=== PATIENT | male | born 1935 | race Caucasian/White ===

== ENCOUNTER 2017-06-13 08:15 | Emergency (ER) | payer MEDICARE ==
[~2017-06-13] VITALS: Ht 180.3 cm; Wt 86.2 kg
--- OUTSIDE RECORDS SUMMARY | ~2017-06-13 | XMS | Clinical Summary ---
Demographics + + + | Address | [address] | | | [place] [address] | + + + | Home Phone | | + + + | Preferred Language | Unknown | + + + | Marital Status | Single | + + + | Pentecostal Affiliation | CAT | + + + | Race | White | + + + | Ethnic Group | Not or | + + + Author + + + | Author | [facility] | + + + | Organization | [facility] | + + + | Address | Unknown | + + + | Phone | Unavailable | + + + Support + + +---------+ + | Name | Relationship | Address | Phone | + + +---------+ + | KINJAL KULKARNI | ECON | Unknown | | + + +---------+ + Care Team Providers + +------+ + | Care Hydrate Thickener Operator Name | Role | Phone | + +------+ + | Bruce Handley MD | PP | | + +------+ + Source Comments GISELLE is fully live on both [facility] and [facility] Allergies No Known Allergies Current Medications + + + +---------+------+------+-------+ | Prescription | Sig. | Disp. | Refills | Star | End | Statu | | | | | | t | Date | s | | | | | | Date | | | + + + +---------+------+------+-------+ | COZAAR 50 MG TAB | AM | | | | | Activ | | | | | | | | e | + + + +---------+------+------+-------+ | ALBUTEROL 90 | 2 puffs daily + as | | | | | Activ | | MCG/ACTUATION | needed | | | | | e | | AEROSOL INHALER | | | | | | | + + + +---------+------+------+-------+ | sodium chloride | Inhale 5 mL three | 100 mL | 3 | 04/0 | | Activ | | 0.9 % Inhalation | times daily. | | | 620 | | e | | Solution for | | | | 11 | | | | Nebulization | | | | | | | + + + +---------+------+------+-------+ | omeprazole 20 mg | Take 1 Cap by mouth | 60 Cap | 4 | 08/3 | | Activ | | Oral capsule,delayed | two times daily. | | | 20 | | e | | release(DR/EC) | | | | 12 | | | + + + +---------+------+------+-------+ | | Inhale 1 Puff two | | | | | Activ | | fluticasone-salmeter | times daily. | | | | | e | | ol 100-50 mcg/dose | | | | | | | | Inhalation Disk with | | | | | | | | Device | | | | | | | + + + +---------+------+------+-------+ | cholecalciferol, | Take 2,000 Units by | | | | | Activ | | Vitamin D3, 1,000 | mouth once daily in | | | | | e | | unit Oral tablet | the morning. | | | | | | + + + +---------+------+------+-------+ | multivitamin Oral | Take 1 capsule by | | | | | Activ | | capsule | mouth once daily in | | | | | e | | | the morning. | | | | | | + + + +---------+------+------+-------+ | clopidogrel | Take 1 Tab by mouth | 35 Tab | 0 | 12/0 | | Activ | | (PLAVIX) 75 mg Oral | once daily. | | | 4/20 | | e | | tablet | | | | 12 | | | + + + +---------+------+------+-------+ | aspirin 325 mg | Take 1 Tab by mouth | 30 Tab | 12 | 12/0 | | Activ | | Oral tablet | once daily. | | | 4 | | e | | | | | | 12 | | | + + + +---------+------+------+-------+ | NYSTATIN 100,000 | Take by mouth. Use | 120 mL | 2 | 03/05 | | Activ | | unit/mL oral | on cleaning brush | | | 0 | | e | | suspensionIndication | twice daily as | | | 14 | | | | s: oral candidiasis | directed in clinic | | | | | | | | Indications: ORAL | | | | | | | | CANDIDIASIS | | | | | | + + + +---------+------+------+-------+ | levothyroxine 175 | Take 175 mcg by | | | 03/05 | | Activ | | mcg oral tablet | mouth once daily in | | | 2/20 | | e | | | the morning. | | | 16 | | | + + + +---------+------+------+-------+ | PROAIR HFA 90 | Inhale by mouth | | | 02/0 | | Activ | | mcg/actuation | every six hours as | | | 03/24 | | e | | inhalation HFA | needed. | | | 16 | | | | aerosol inhaler | | | | | | | + + + +---------+------+------+-------+ | temazepam 30 mg | Take 30 mg by mouth | | | 03/05 | | Activ | | oral capsule | once daily at | | | 09/21 | | e | | | bedtime. | | | 16 | | | + + + +---------+------+------+-------+ | OMEGA-3 FATTY | Take by mouth once | | | | | Activ | | ACIDS (FISH OIL | daily in the | | | | | e | | ORAL) | morning. | | | | | | + + + +---------+------+------+-------+ | Flaxseed Oil oil | two times daily. | | | | | Activ | | | | | | | | e | + + + +---------+------+------+-------+ | Garlic 1,000 mg | Take by mouth two | | | | | Activ | | oral capsule | times daily. | | | | | e | + + + +---------+------+------+-------+ | IRON ORAL | Take by mouth once | | | | | Activ | | | daily in the | | | | | e | | | morning. | | | | | | + + + +---------+------+------+-------+ | VIT | Take by mouth two | | | | | Activ | | C/E/ZN/COPPR/LUTEIN/ | times daily. | | | | | e | | ZEAXAN (PRESERVISION | | | | | | | | AREDS 2 ORAL) | | | | | | | + + + +---------+------+------+-------+ | oxyCODONE | Take 1 tablet by | 10 | 0 | 06/2 | | Activ | | (immediate release) | mouth every four | tablet | | 3/20 | | e | | 5 mg oral tablet | hours as needed for | | | 17 | | | | | severe pain. | | | | | | + + + +---------+------+------+-------+ | acetaminophen 325 | Take 2 tablets by | 60 | 0 | 06/2 | | Activ | | mg oral tablet | mouth every four | tablet | | 4/20 | | e | | | hours as needed. 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 | + + + Resolved Problems + + + + | Problem | Noted | Resolved | | | Date | Date | + + + + | Oral candidiasis | 03/17/19 | | | | 14 | 8 | + + + + Encounters +--------+ + + + + | Date | Type | Specialty | Care Team | Description | +--------+ + + + + | 05/08/ | Diagnostic | | Jaret Lyles | | | 2017 | Visit | | | | +--------+ + + + + | 05/08/ | Office | | Bakari Romero, | Malignant neoplasm | | 2018 | Visit | | MD | of glottis (HCC) | | | | | | (Primary Dx) | +--------+ + + + + | 04/25/ | Telephone | | Jaret Lyles | Tep Voice Prosthesis | | 2018 | | | | Problems | +--------+ + + + + from Last 3 Months Family History + +------+--------+ + | Relation | Name | Status | Comments | + +------+--------+ + Social History + + + +--------+ + | Tobacco Use | Types | Packs/Day | Years | Date | | | | | Used | | + + + +--------+ + | Former Smoker | Cigarettes | 2 | 33 | 195103/22/1984 | + + + +--------+ + + +---+---+---+ | Smokeless Tobacco: | | | | | Never Used | | | | + +---+---+---+ + + +---------+ + | Alcohol Use | Drinks/We | oz/Week | Comments | | | ek | | | + + +---------+ + | Yes | 0-1 | 0.0 - | rarely | | | Standard | 0.6 | | | | drinks or | | | | | | | | | | equivalen | | | | | t | | | + + +---------+ + + + + | Sex Assigned at | Date Recorded | | | | + + + | Not on file | | + + + Last Filed Vital Signs + + + + | Vital Sign | Reading | Time Taken | + + + + | Blood Pressure | 115/73 | 05/08/2017 4:37 PM PST | + + + + | Pulse | 94 | 05/08/2017 4:37 PM PST | + + + + | Temperature | 36.6 C (97.9 F) | 08/26/2016 7:37 AM PDT | + + + + | Respiratory Rate | 16 | 08/26/2016 4:41 AM PDT | + + + + | Oxygen Saturation | 94% | 08/26/2016 7:37 AM PDT | + + + + | Inhaled Oxygen | - | - | | Concentration | | | + + + + | Weight | 72.6 kg (160 lb) | 05/08/2017 4:37 PM PST | + + + + | Height | 188 cm (6' 2") | 08/25/2016 10:29 AM PDT | + + + + | Body Mass Index | 20.54 | 05/08/2017 4:37 PM PST | + + + + Plan of Treatment + + + + + | Health Maintenance | Due Date | Last Done | Comments | + + + + + | INFLUENZA VACCINE | | | | | (FLU SHOT) | 8 | | | + + + + + Procedures + +--------+ + + + | Procedure Name | Priori | Date/Time | Associated Diagnosis | Comments | | | ty | | | | + +--------+ + + + | MS EVAL VOICE PROSTH | Routin | 05/08/2017 | Aphonia | | | DEVICE | e | 5:22 PM | Dysphagia, | | | | | PST | pharyngoesophageal | | | | | | phase Attention to | | | | | | tracheostomy (HCC) | | + +--------+ + + + from Last 3 Months Results Not on filefrom Last 3 Months
--- OUTSIDE RECORDS SUMMARY | ~2017-06-13 | XMS | Encounter Summary ---
Demographics + + + | Address | [address] | | | [place] [address] | + + + | Home Phone | | + + + | Preferred Language | Unknown | + + + | Marital Status | Single | + + + | Mormon Affiliation | CAT | + + + | Race | White | + + + | Ethnic Group | Not or | + + + Author + + + | Author | [facility] | + + + | Organization | [facility] | + + + | Address | Unknown | + + + | Phone | Unavailable | + + + Support + + +---------+ + | Name | Relationship | Address | Phone | + + +---------+ + | KINJAL KULKARNI | ECON | Unknown | | + + +---------+ + Care Team Providers + +------+ + | Care Police Detention Attendant Name | Role | Phone | + +------+ + | Bruce Handley MD | PCP | | + +------+ + Reason for Visit Benefits Check (Routine) + +--------+ + + + + | Status | Reason | Specialty | Diagnoses / | Referred By | Referred To | | | | | Procedures | Contact | Contact | + +--------+ + + + + | Authorized | | Otolaryngolog | Diagnoses | [facility] | Romero, | | | | y | Malignant | Epic Dept | MD Bakari | | | | | neoplasm of | | [address] | | | | | glottis | | [address] | | | | | Esophageal | | [address] [place], | | | | | obstruction | | [place] | | | | | Procedures | | [address] | | | | | [place] | | Phone: | | | | | OFFICE/OUTPT | | [phone] | | | | | | | Fax: | | | | | VISIT,EST,LE | | [phone] | | | | | WINDY III | | | + +--------+ + + + + Encounter Details +--------+---------+ + + + | Date | Type | Department | Care Team | Description | +--------+---------+ + + + | 05/08/ | Office | Otolaryngology | Bakari Romero, | Malignant neoplasm | | 2018 | Visit | Head and Neck | [address] | of glottis (HCC) | | | | Surgery Services at | [facility] [address] | (Primary Dx) | | | | [facility] [address] | [place], [place] | | | | | [facility] | [address] | | | | | Mailcode: [address]01 | [phone] | | | | | [facility] | | | | | | [place], [place] | | | | | | [address] | | | | | | [phone] | | | +--------+---------+ + + + Social History + + + +--------+ [...] on file | | + + + as of this encounter Last Filed Vital Signs + + + + | Vital Sign | Reading | Time Taken | + + + + | Blood Pressure | 115/73 | 05/08/2017 4:37 PM PST | + + + + | Pulse | 94 | 05/08/2017 4:37 PM PST | + + + + | Temperature | - | - | + + + + | Respiratory Rate | - | - | + + + + | Oxygen Saturation | - | - | + + + + | Inhaled Oxygen | - | - | | Concentration | | | + + + + | Weight | 72.6 kg (160 lb) | 05/08/2017 4:37 PM PST | + + + + | Height | - | - | + + + + | Body Mass Index | 20.54 | 05/08/2017 4:37 PM PST | + + + + in this encounter Progress Notes Bakari Romero MD - 05/08/2017 4:00 PM PSTOtolaryngology Attending Note Please see Dr. Feliciano's note for the complete details of the history and physical exam. I r eviewed the resident's findings and repeated these components of the physical exam: complete history, review of systems, review of medications and complete examination of the head and neck I participated in the formulation of the diagnosis and treatment plan as outlined in Dr. Nacho nguyen's note. Bakari Romero MD Professor of Otolaryngology, Head & Neck Surgery Display Progress Note in MyChart:No Jen Feliciano MD - 05/08/2017 4:00 PM PSTFormatting of this note may be different from the original. The Department of Otolaryngology Head and Neck Surgery Clinic Follow-Up Visit: Author: Jen Feliciano MD Attending Physician: Bakari Romero MD 05/08/2017, 4:01 PM ID: Pablo Kulkarni is a 81 y.o. Male with PMHx of laryngeal cancer s/p laryngectomy who is here for follow up. Mostly here for TEP change. INTERVAL AND SUBJECTIVE Was having increased difficulty voicing and TEP leak. The voice is actually improved in cl inic today. Recent hospitalization for stroke and possible pneumonia. Pulmonary function d ecreased. Meds: No outpatient prescriptions have been marked as taking for the 05/08/17 encounter (Appointmen t) with Bakari Romero MD. OBJECTIVE: Physical Exam: CURRENT VITALS: Wt 72.6 kg (160 lb), BP 115/73, Pulse 94, BMI 20.54 kg/(m^2). General: awake, answers questions appropriately, very thin HEENT: With TEP he is intelligible Face: Normal facial contour and facial nerve function. No parotid masses palpable on either side. Eyes: Extraocular movements intact, PERRLA. Sclera non-icteric. Nose: Normal, nares clear bilaterally, septum midline Neck: laryngectomy stoma is patent and healthy appearing; original TEP has small leak with water testing, area around TEP is clean, no granulation tissue present, no leak after TEP is replaced ASSESSMENT: This is Pablo Kulkarni, a 81 y.o. 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 TEP replaced in clinic today by speech pathology and resul t is good voice. PLAN: 1. Follow up as needed 2. Continue routine stoma and TEP care 3. Instructions provided to patient and family on using the TEP plug in case he develops an other leak in the future Dr. Romero has seen and examined the patient and agrees with the above plan. Signed: Jen Feliciano MD [facility] - Otolaryngology - Head and Neck Surgery Pager: [phone] Display Progress Note in MyChart:No in this encounter Plan of Treatment Not on fileas of this encounter Visit Diagnoses + + | Diagnosis | + + | 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
--- OUTSIDE RECORDS SUMMARY | ~2017-06-13 | XMS | Encounter Summary ---
Demographics + + + | Address | [address] | | | [place] [address] | + + + | Home Phone | | + + + | Preferred Language | Unknown | + + + | Marital Status | Single | + + + | Adventism Affiliation | CAT | + + + | Race | White | + + + | Ethnic Group | Not or | + + + Author + + + | Author | [facility] | + + + | Organization | [facility] | + + + | Address | Unknown | + + + | Phone | Unavailable | + + + Support + + +---------+ + | Name | Relationship | Address | Phone | + + +---------+ + | KINJAL KULKARNI | ECON | Unknown | | + + +---------+ + Care Team Providers + +------+ + | Care Paradichlorobenzene Tender Name | Role | Phone | + +------+ + | Bruce Handley MD | PCP | | + +------+ + Encounter Details +--------+ + + + + | Date | Type | Department | Care Team | Description | +--------+ + + + + | 05/08/ | Diagnostic | Otolaryngology | Jaret Lyles | | | 2018 | Visit | Speech Therapy | [address] | | | | | Services at [facility] | [facility], | | | | | [address] | [place] [address] | | | | | [facility] | [phone] | | | | | Mailcode: [address]01 | | | | | | [facility] | | | | | | [place], [place] | | | | | | [address] | | | | | | [phone] | | | +--------+ + + + + Social History + + [...] + + + as of this encounter Progress Notes Jaret Lyles - 05/08/2017 4:00 PM PSTFormatting of this note may be different from the o clarissa. Clinic: [facility] Referring Physician: Bruce Handley MD [facility] [address] [place] [id number] PCP: Bruce Handley MD Medical Diagnosis: 1. Dysphagia (ICD-9: 787.29, ICD-10: R13.19) 2. History of head and neck cancer, V10.89 3. Laryngeal cancer (ICD-9: 161.9, ICD-10: C32.9) Date of Onset: 04/27/17 Treatment Diagnosis: 1. Dysphagia, (ICD-9: 787.29, ICD-10: R13.19) 2. Aphonia (ICD-9: 784.41, ICD-10: R49.1) 3. Attention to tracheostomy (ICD-9: V55.0, ICD-10: Z43.0) Start of Care Date: 05/08/2017 Duration of session: 60 minutes SUBJECTIVE: Pablo Kulkarni is a 81 y.o. male patient of Dr. Romero who returns to [facility] with complaints of difficulty voicing, leakage through the TEP, difficulty with TEP manag ement and stoma care. He is a resident at a SNF in [place]. I have been contacted by his S LP there. He is accompanied by his family who have many questions about stoma care and the T EP. TEP PUNCTURE PROTOCOL: The patient currently has a 4.5mm Provox2 voice prosthesis in place which was last changed on 01/09/17.The voice prosthesis was inspected and was noted to be wel l-housed. There was leakage through the voice prosthesis on consumption of thin liquids. The prosthesis was replaced with a 4.5mm Provox2 voice prosthesis (LOT# [id number]) with no diffic ulty after brief dilation and sizing of the tract. Confirmation of placement was achieved vi a 360 degree rotation. Voice quality returned to baseline. There were no leaks through or ar ound the voice prosthesis. The tab was then removed. PATIENT EDUCATION & TREATMENT: During today's visit we also discussed wearing an HME throug hout the day as tolerated to facilitate breathing and voicing. I will fax an Rx to [facility]. In addition an Rx for a home suction and humidifier were given to the patient's family for use after DC home. Supplies dispensed today included 1 package of TEP cleaning brushes. [employer]AN National Outcomes Measurement System (NOMS): Swallowing CURRENT STATUS: FCM LEVEL 6 (G-CODE MODIFIER CI): Swallowing is safe, and the individual ea ts and drinks independently and may rarely require minimal cueing. The individual usually se lf-cues when difficulty occurs. May need to avoid specific food items (e.g., popcorn and nut s), or require additional time (due to dysphagia). GOAL STATUS: FCM LEVEL 6 (G-CODE MODIFIER CI): Swallowing is safe, and the individual eats and drinks independently and may rarely require minimal cueing. The individual usually self- cues when difficulty occurs. May need to avoid specific food items (e.g., popcorn and nuts), or require additional time (due to dysphagia). Medicare G-Codes: 14845 CO EVAL VOICE PROSTH DEVICE L8513 CO TRACH PROS CLEANING DEVICE [id number] PROVOX VOICE PROSTHESIS-BACK OFFICE G8996 PQRI SWALLOW CURRENT STATUS Impairment 1-19 % G8997 PQRI SWALLOW GOAL STATUS Impairment 1-19 % ASSESSMENT: Patient is doing well after placement of a 4.5mm Provox2 voice prosthesis in or erica to facilitate voice and prevent aspiration of foods and liquids. The patient communicates by means of a voice prosthesis between the trachea and the esophag us following total laryngectomy. The patient will require periodic visits for ongoing replac ement of this device for the rest of their life in order to avoid aspiration of food or liqu ids secondary to device failure which could result in potentially life-threatening respirato ry complications. PLAN: We will continue to follow-up with the patient for care and changing of the voice pro sthesis, per our usual protocol. Jaret Lyles, PhD, CCC-RETOUCHING OPERATOR [facility] Dept. of Otolaryngology, - [address] [facility] [address] [place] [address] [address] Romero's signature indicates his agreement with the evaluation and/or proposed plan o f care stated above. in this encounter Plan of Treatment + +--------+ + + | Name | Priori | Associated Diagnoses | Order Schedule | | | ty | | | + +--------+ + + | PQRI SWALLOW CURRENT STATUS | Routin | Aphonia | Ordered: 05/08/2017 | | | e | Dysphagia, | | | | | pharyngoesophageal | | | | | phase Attention to | | | | | tracheostomy (HCC) | | + +--------+ + + | PQRI SWALLOW GOAL STATUS | Routin | Aphonia | Ordered: 05/08/2017 | | | e | Dysphagia, | | | | | pharyngoesophageal | | | | | phase Attention to | | | | | tracheostomy ([facility]) | | + +--------+ + + as of this encounter Procedures + +--------+ + + + | Procedure Name | Priori | Date/Time | Associated Diagnosis | Comments | | | ty | | | | + +--------+ + + + | CO EVAL VOICE PROSTH | Routin | 05/08/2017 | Aphonia | | | DEVICE | e | 5:22 PM | Dysphagia, | | | | | PST | pharyngoesophageal | | | | | | phase Attention to | | | | | | tracheostomy ([facility]) | | + +--------+ + + + in this encounter Visit Diagnoses + + | Diagnosis | + + | Aphonia | + + | Dysphagia, pharyngoesophageal phase | + + | Attention to tracheostomy (HCC) | + + | Attention to tracheostomy | + +"
--- OUTSIDE RECORDS SUMMARY | ~2017-06-13 | XMS | Encounter Summary ---
Demographics + + + | Address | [address] | | | [place] [address] | + + + | Home Phone | | + + + | Preferred Language | Unknown | + + + | Marital Status | Single | + + + | Mandaen Affiliation | CAT | + + + | Race | White | + + + | Ethnic Group | Not or | + + + Author + + + | Author | [facility] | + + + | Organization | [facility] | + + + | Address | Unknown | + + + | Phone | Unavailable | + + + Support + + +---------+ + | Name | Relationship | Address | Phone | + + +---------+ + | KINJAL KULKARNI | ECON | Unknown | | + + +---------+ + Care Team Providers + +------+ + | Care Senior It Recruiter Name | Role | Phone | + +------+ + | Bruce Handley MD | PCP | | + +------+ + Reason for Visit + + + | Reason | Comments | + + + | Tep Voice Prosthesis | | | Problems | | + + + Encounter Details +--------+ + + + + | Date | Type | Department | Care Team | Description | +--------+ + + + + | 04/25/ | Telephone | Otolaryngology | Jaret Lyles | Chaya Voice Prosthesis | | 2018 | | Speech Therapy | [address] | Problems | | | | Services at [facility] | [facility], | | | | | [address] | [place] [address] | | | | | [facility] | [phone] | | | | | Mailcode: [address] | | | | | | [facility] | | | | | | [place], [place] | | | | | | [address] | | | | | | [phone] | | | +--------+ + + + [...] + + + as of this encounter Plan of Treatment Not on fileas of this encounter Visit Diagnoses Not on filein this encounter"
--- OUTSIDE RECORDS SUMMARY | ~2017-06-13 | XMS | Encounter Summary ---
Demographics + + + | Address | [address] | | | [place] [address] | + + + | Home Phone | | + + + | Preferred Language | Unknown | + + + | Marital Status | Single | + + + | Mu-Ism Affiliation | CAT | + + + | Race | White | + + + | Ethnic Group | Not or | + + + Author + + + | Author | [facility] | + + + | Organization | [facility] | + + + | Address | Unknown | + + + | Phone | Unavailable | + + + Support + + +---------+ + | Name | Relationship | Address | Phone | + + +---------+ + | KINJAL KULKARNI | ECON | Unknown | | + + +---------+ + Care Team Providers + +------+ + | Care 911 Operator Name | Role | Phone | [...] | | | | | Services at [facility] | [facility], | | | | | [address] | [place] [address] | | | | | [facility] | [phone] | | | | | Mailcode: PV01 | | | | | | [facility] | | | | | | [place], [place] | | | | | | [address] | | | | | | [phone] | | | +--------+ + + + [...] be different from the o clarissa. Clinic: [facility] Referring Physician: Bruce Handley MD [facility] [address] [place] [id number] PCP: Bruce Handley MD Medical Diagnosis: 1. [...] patient of Dr. Romero who [facility] with complaints of difficulty voicing, leakage through the TEP, difficulty with TEP manag ement and stoma care. He is a resident at a SNF in [place]. I have been contacted by his S [...] with a 4.5mm Provox2 voice prosthesis (LOT# [id number]) with no diffic ulty after brief dilation [...] voicing. I will fax an Rx to [facility]. In addition an Rx for a home [...] additional time (due to dysphagia). Medicare G-Codes: 93975 [place] EVAL VOICE PROSTH DEVICE [id number] [place] TRACH PROS CLEANING DEVICE [id number] PROVOX VOICE PROSTHESIS-BACK OFFICE [id number] PQRI SWALLOW [...] per our usual protocol. Jaret Lyles, PhD, CCC-SALES OFFICER [facility] Dept. of Otolaryngology, - [address] [place] [address] [address] Romero's signature indicates his agreement with [...] to | | | | | tracheostomy ([facility]) | | + +--------+ + + as of this encounter Procedures + +--------+ + + + | Procedure Name | Priori | Date/Time | Associated Diagnosis | Comments | | | ty | | | | + +--------+ + + + | NH EVAL VOICE PROSTH | Routin | 05/08/2017 | Aphonia | | | DEVICE | e | 5:22 PM | Dysphagia, | | | | | PST | pharyngoesophageal | | | | | | phase Attention to | | | | | | tracheostomy ([facility]) | | + +--------+ + + + in this encounter Visit Diagnoses + + | Diagnosis | + + | Aphonia | + + | Dysphagia, pharyngoesophageal phase | + + | Attention to tracheostomy (HCC) | + + | Attention to tracheostomy | + +"
--- OUTSIDE RECORDS SUMMARY | ~2017-06-13 | XMS | Encounter Summary ---
Demographics + + + | Address | [address] | | | [place] [address] | + + + | Home Phone | | + + + | Preferred Language | Unknown | + + + | Marital Status | Single | + + + | Holiness Affiliation | CAT | + + + | Race | White | + + + | Ethnic Group | Not or | + + + Author + + + | Author | [facility] | + + + | Organization | [facility] | + + + | Address | Unknown | + + + | Phone | Unavailable | + + + Support + + +---------+ + | Name | Relationship | Address | Phone | + + +---------+ + | KINJAL KULKARNI | ECON | Unknown | | + + +---------+ + Care Team Providers + +------+ + | Care Kaiwhakahaere Name | Role | Phone | + [...] | | | Esophageal | | [address] [place], | | | | | obstruction | | [place] | | | | | Procedures | | [address] | | | | | [place] | | Phone: | | | | | OFFICE/OUTPT | | [phone] | | | | | | | Fax: | | | | | VISIT,EST,LE | | [phone] | | | | | WINDY III [...] | | | Surgery Services at | [address] | (Primary Dx) | | | | [facility] [address] | [place], [place] | | | | | [facility] | [address] | | | | | Mailcode: PV01 | [phone] | | | | | [facility] | | | | | | [place], [place] | | | | | | [address] | | | | | | [phone] | | | +--------+---------+ + + + [...] Otolaryngology - Head and Neck Surgery Pager: [phone] Display Progress Note in MyChart:No in this encounter Plan of Treatment Not on fileas of this encounter Visit Diagnoses + + | Diagnosis | + + | 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
--- OUTSIDE RECORDS SUMMARY | ~2017-06-13 | XMS | Clinical Summary ---
Demographics + + + | Address | [address] | | | [place] [address] | + + + | Home Phone | | + + + | Preferred Language | Unknown | + + + | Marital Status | Single | + + + | Latter-Day Affiliation | CAT | + + + [...] Team Providers + +------+ + | Care Classifier Operator Name | Role | Phone | + +------+ + | Bruce Handley MD | PP | | + +------+ + Source Comments GISELLE is fully live on both [facility] and [facility] Allergies No Known Allergies Current Medications + [...] | + +--------+ + + + | [place] EVAL VOICE PROSTH | Routin | 05/08/2017 [...]
--- OUTSIDE RECORDS SUMMARY | ~2017-06-13 | XMS | Encounter Summary ---
Demographics + + + | Address | [address] | | | [place] [address] | + + + | Home Phone | | + + + | Preferred Language | Unknown | + + + | Marital Status | Single | + + + | Christianity Affiliation | CAT | + + + | Race | White | + + + | Ethnic Group | Not or | + + + Author + + + | Author | [facility] | + + + | Organization | [facility] | + + + | Address | Unknown | + + + | Phone | Unavailable | + + + Support + + +---------+ + | Name | Relationship | Address | Phone | + + +---------+ + | KINJAL KULKARNI | ECON | Unknown | | + + +---------+ + Care Team Providers + +------+ + | Care Table Games Manager Name | Role | Phone | + [...] Problems | | | | Services at [facility] | [facility], | | | | | [address] | [place] [address] | | | | | [facility] | [phone] | | | | | Mailcode: PV01 | | | | | | [facility] | | | | | | [place], [place] | | | | | | [address] | | | | | | [phone] | | | +--------+ + + + [...]
[2017-06-13] MEDS ORDERED: IPRAT-ALBUT 0.5-3 ML INH (09:16)
[2017-06-13] MEDS ORDERED: LIPITOR40 MG PO (09:17)
[2017-06-13] MEDS ORDERED: SERTRALINE HCL25 MG PO (09:17)
[2017-06-13] MEDS ORDERED: ACEROLA C500 MG PO (09:18)
[2017-06-13] MEDS ORDERED: IRON325 M1 PO (09:18)
[2017-06-13] MEDS ORDERED: ACID CONTROLLER20 MG PO (09:19)
[2017-06-13] MEDS ORDERED: PLAVIX75 MG PO (09:20)
[2017-06-13] MEDS ORDERED: FLOMAX0.4 MG PO (09:20)
[2017-06-13] MEDS ORDERED: LEVO-T50 MCG PO (09:21)
[2017-06-13] MEDS ORDERED: TRAZODONE HCL50 MG PO (09:27)
[2017-06-13] MEDS ORDERED: QVAR8.7 G1 INH (09:30)
[2017-06-13] MEDS ORDERED: NAPROSYN500 MG PO (09:32)
[2017-06-13] MEDS ORDERED: CALCIUM600 MG PO (09:32)
[2017-06-13] MEDS ORDERED: VENTOLIN HFA18 GM INH (09:33)
[2017-06-13] MEDS ORDERED: OXYCODONE HCL5 MG PO (09:35)
--- NOTE | 2017-06-14 07:01 | EKG ---
[facility] [address] [facility] [place] [address] Signed Normal sinus rhythm Nonspecific ST and T wave abnormality Abnormal ECG No previous ECGs available Confirmed by BRODY FAIR MD ([id number]) on 06/14/2017 7:01:35 AM Electronically Signed By: BRODY FAIR MD 06/14/17 0701 PATIENT NAME: LEANDRO JAVIER Electrocardiogram DATE OF : 39 PHYSICIAN: BRODY FAIR MD REPORT #: [id number] REPORT IS CONFIDENTIAL AND NOT TO BE RELEASED WITHOUT AUTHORIZATION
== END 2017-06-13 13:05 | disposition short-term general hospital (02) ==
LOC: ED 08:15
DX: J18.9 Pneumonia, unspecified organism (principal); Z88.8 Allergy status to other drugs, medicaments and biological substances; Z79.899 Other long term (current) drug therapy; Z79.1 Long term (current) use of non-steroidal anti-inflammatories (NSAID)
CPT/HCPCS: 31720; 36415; 71045; 80053; 81001; 83605; 84484; 85025; 85379; 87040; 87088; 93005; 93010; 96374; 96375; 99285; J0456; J0696; J7030